=== PATIENT | male | born 1995 | race Caucasian/White ===

== ENCOUNTER 2022-08-20 10:43 | Emergency (ER) | payer MEDICAID ==
[~2022-08-20] VITALS: Ht 182.9 cm; Wt 74.8 kg
[2022-08-20 10:43] VITALS: BP_SYST 125
--- NOTE | 2022-08-20 11:04 | NUR ---
PATIENT BROUGHT IN BY FAMILY. PATIENT ALERT AND ORIENTED X 4, WITH C/O PAIN TO RIGHT ANKLE. NO S/S OF ACUTE DISTRESS
[2022-08-20] MEDS ORDERED: IBUP-1971 PO (12:01)
[2022-08-20] MEDS ORDERED: TRAM50TA2 PO (12:01)
[2022-08-20 12:18] VITALS: BP_SYST 117
--- NOTE | 2022-08-20 12:20 | NUR ---
Patient given written and verbal discharge instructions and verbalizes understanding. ER MD discussed with patient the results and treatment provided. Patient in stable condition. ID arm band removed. Rx of IBUPROFEN AND TRAMADOL given. Patient educated on pain management and to follow up with PMD. Pain Scale 2. Opportunity for questions provided and answered. Medication side effect fact sheet provided.
== END 2022-08-20 12:20 | disposition home or self-care (01) ==
LOC: SED 10:43
DX: M25.571 Pain in right ankle and joints of right foot (principal); Z79.899 Other long term (current) drug therapy
CPT/HCPCS: 99283